=== PATIENT | male | born 1985 | race Caucasian/White ===

== ENCOUNTER 2022-11-15 09:40 | Emergency (ER) | payer OTHER, SELFPAY ==
[2022-11-15 09:41] VITALS: BP 129/91; PULSE 110; RESP 22; TEMP 36.6; O2SAT 97; BMI 26.9
--- NOTE | 2022-11-15 10:06 | CT_ITS ---
STUDY: CT ABDOMEN AND PELVIS WITH CONTRAST REASON FOR EXAM: Male, 36 years old. lower abd pain RADIATION DOSAGE (If Supplied By Facility): CTDIvol = ( 15.86 ) mGy, DLP = ( 1019.32 ) mGycm TECHNIQUE: Transaxial images were obtained from the dome of the diaphragm to the symphysis pubis without oral contrast. IV 100mL Isovue-370 was administered. Sagittal and coronal images were reconstructed. Individualized dose optimization techniques were used for this CT. COMPARISON: None. FINDINGS: The visualized lung bases are unremarkable. The visualized portions of the heart are within normal limits. Normal liver. Normal gallbladder and extrahepatic biliary system. Normal spleen. Normal pancreas. Normal bilateral adrenal glands. Normal right kidney. Normal left kidney. There is a small hiatal hernia. Normal small intestine. Normal colon. The appendix is visualized and appears normal. Normal abdominal aorta. Normal inferior vena cava. Normal retroperitoneum. Normal urinary bladder. Normal abdominal wall. Normal osseous structures. CT/Abdomen/Pelvis W IV Cont ONLY IMPRESSION: No acute abnormality. Small hiatal hernia. Electronically Signed: Sunny Jara MD at 12:05 EDT ,
--- NOTE | 2022-11-15 10:07 | ED.VIS.GI ---
HPI HPI - GI History of Present Illness Chief Complaint: Abd Pain Detail of Chief Complaint: Suprapubic abd pain since last night. Informant: patient and spouse/S.O. Abdominal Pain/Flank Pain Onset: Today and Yesterday Context: Gradual Onset Timing: Continuous Current Severity: Moderate Maximum Severity: Moderate Worsened by: Nothing Relieved by: Nothing Nausea/Vomiting/Emesis GI Symptom: Positive for Nausea and Vomiting Onset: Today and Yesterday Severity: Mild Diarrhea/Melena/Hematochezia GI Symptom: Negative for Diarrhea Associated Symptoms Associated Symptoms: Positive for Dysuria Narrative Narrative: 36-year-old male no seen past medical history of then prior back surgery from trauma. States that yesterday started having suprapubic abdominal pain with nausea vomiting. No diarrhea no constipation. Mild dysuria. No prior history. No prior abdominal surgery. No fever. No trauma. Prior similar symptoms: No Recent Illness/Hospitalization: No PFSH PFSH Medical History (Updated 11/15/22 @ 15:[address] James Sharpe MD) Hx of opioid abuse Hx of opioid abuse Medical History no medical history no medical history Home Medications NK 11/15/22 [History Last Taken Unknown] Allergy/AdvReac Type Severity Reaction Status Date / Time No Known Allergies Allergy Verified 11/15/22 09:41 Family History no significant family his Surgical History (Updated 11/15/22 @ 10:34 by Nadege Peñaloza) Previous back surgery Surgical History no surgical history Social History Smoking Status: Never smoker ROS ROS ED ROS Narrative Suprapubic abdominal pain. Nausea vomiting. Review of Systems ROS Unobtainable: Denies due to encephalopathy Constitutional Constitutional ED: Reports chills; Denies fever(s) ENT ENT ED: Denies ear pain Cardiovascular Cardiovascular: Denies chest pain Respiratory/Chest Respiratory/Chest: Denies cough or dyspnea Gastrointestinal Gastrointestinal: Reports abdominal pain, nausea and vomiting; Denies constipation, diarrhea or melena Genitourinary Genitourinary ED: Reports dysuria Musculoskeletal Musculoskeletal: Denies arthralgias Integumentary Denies abscess Neurologic Neurologic: Denies headache(s) Psychiatric Psychiatric: Denies anxiety Endocrine Endocrinology: Denies polydipsia or polyphagia Hematologic/Lymphatic Hematologic/Lymphatic: Denies easy bleeding Allergic/Immunologic Allergic/Immunologic ED: Denies mouth swelling EXAM Physical Exam Narrative Exam Narrative: 36-year-old male vital signs are stable afebrile. He does not look septic or toxic. He is in no distress but he does seem to be in a moderate amount of pain. HEENT exam unremarkable. Lungs are clear. Heart regular rhythm. Abdomen soft, nondistended, normal bowel sounds without peritoneal signs. Both the right upper and right lower quadrants are unremarkable. No distention. His only tenderness is suprapubic below his bellybutton above his lower pelvis. No signs of trauma. Moving all 4 extremities. Back nontender. Neurologically is awake and alert. Const Vital Signs: 11/15/22 09:41 11/15/22 13:00 11/15/22 15:00 Temperature 97.9 F Temperature Source Temporal Pulse Rate 110 H 68 82 Respiratory Rate 22 H 20 H 37 H Blood Pressure 129/91 H 133/83 H Blood Pressure Mean 103 98 Pulse Ox 97 Oxygen Delivery Method Room Air Room Air Positive well nourished and well developed; Negative for cachectic, contractures or unkempt General Appearance ED: well developed; Negative for unkempt, cachectic, contractures or pallor Nutritional Appearance: Negative for cachectic HEENT Reports moist mucous membranes normocephalic and atraumatic; Negative for trauma or tenderness Eyes PERRL and EOMs intact bilaterally General Eye ED: Negative for pale conjunctiva or scleral icterus Neck no lymphadenopathy, supple and no JVD General: Negative for tenderness Carotids: Negative for other Lymph Lymphatic: Negative for other Resp normal respiratory effort and clear to auscultation bilaterally Effort and Inspection: Negative for respiratory distress Auscultation: Negative for rales or rhonchi Cardio regular rate, regular rhythm, S1 normal heart sound and no murmurs GI non-distended and no masses; Negative for non-tender Inspection: Negative for abdominal distention Auscultation: normoactive bowel sounds Palpation: soft and tender; Negative for guarding, rigid, hepatomegaly, splenomegaly, hernia, mass, pulsatile mass or rebound tenderness present Back/Spine no CVA tenderness General Back: Negative for CVA tenderness Cervical Spine: Negative for cervical spine tenderness Thoracic Spine / Upper Back: Negative for thoracic spinal tenderness Lumbar Spine / Lower Back: Negative for lumbar spinal tenderness Coccyx: Negative for other Extremity full ROM General Extremety ED: Negative for edema or tenderness General Extremity: Negative for edema Neuro CN's II-XII intact bilaterally and moves all extremities Sensorium / Orientation: alert, oriented to person, oriented to place and oriented to time; Negative for orientation impaired or confused Motor Exam: strength 5/5 throughout Psych mental status grossly normal and thought process normal Appearance: Negative for unkempt Attitude: No agitated Skin no wounds General Skin Exam: Negative for jaundice or pallor Lesions: no lesions Rashes: no rashes Trauma: Negative for abrasion Nails: Negative for discolored MDM MDM MDM Narrative Medical decision making narrative: 36-year-old male with suprapubic abdominal pain with nausea vomiting since last night. Differential would include urinary tract infection, prostate infection, diverticulitis. Clinically he is not tender to right lower quadrant appendicitis would be in the differential. CAT scan and labs and urinalysis are being obtained. Will be treated with Toradol for his pain. Zofran for nausea. IV fluids. Repeat exam atorvastatin helped his pain so he was then given a dose of morphine. When the labs returned and the CAT scan showed no specific cause I did do an external exam it was unremarkable. Circumcised male. Testicles were nontender. Normal position. No swelling. I also did a rectal exam there is no prostate tenderness nor swelling this did not appear to be a prostatitis. Explained to both he and his significant other we do not have a specific cause for his suprapubic pain. We discharged home with Tylenol Motrin for pain and outpatient follow-up. History & Record Review Discussion w/independent historian: Patient and Family Lab Data Attestation: I reviewed the patient's lab results. Lab results narrative: CBC shows a white count of 13. H&H is 16.5 and 47. Platelets 459. CMP shows a gap of 11. BUN and creatinine are 25 and 1. Liver enzymes are unremarkable. CT abdomen pelvis shows no acute process. Incidental hiatal hernia. But no cause for his pain. Urinalysis is negative. Labs: Laboratory Results - last 24 hr 11/15/22 11/15/22 11/15/22 10:15 10:15 14:15 WBC 13.0 H RBC 5.73 Hgb 16.5 Hct 47.9 MCV 83.6 MCH 28.8 MCHC 34.4 RDW Std Deviation 39.2 RDW Coeff of Garcia 12.8 Plt Count 459 H MPV 9.7 Immature Gran % (Auto) 0.300 Neut % (Auto) 74.9 H Lymph % (Auto) 18.0 L Green % (Auto) 6.5 Eos % (Auto) 0.0 Baso % (Auto) 0.3 Absolute Neuts (auto) 9.8 H Absolute Lymphs (auto) 2.35 Nucleated RBC % 0 Sodium 138 Potassium 3.7 Chloride 107 Carbon Dioxide 20.0 L Anion Gap 11 BUN 25 H Creatinine 1.04 Estim Creat Clear Calc 120.56 Est GFR (MDRD) Af Amer 103 Est GFR (MDRD) Non-Af 85 BUN/Creatinine Ratio 24.0 H Glucose 104 Calcium 9.7 Total Bilirubin 1.50 H AST 28 ALT 40 Alkaline Phosphatase 111 Total Protein 9.0 H Albumin 3.9 Globulin 5.1 H Albumin/Globulin Ratio 0.8 L Urine Color Yellow Urine Clarity Clear Urine pH 7.0 Ur Specific [place] 1.010 Urine Protein 30 H Urine Glucose (UA) Normal Urine Ketones 150 A* Urine Occult Blood 25 H Urine Nitrite Negative Urine Bilirubin 1 H Urine Urobilinogen 4 H Ur Leukocyte Esterase 25 H Urine RBC 0 SEEN Urine WBC 0-5 SEEN Ur Squamous Epith Cells 0-5 SEEN Urine Bacteria 0 SEEN Urine Mucus 0 SEEN Radiography Diagnostic Testing: Clinical Impression(s) from Imaging Studies Abdomen/Pelvis CT 11/15/22 10:06 IMPRESSION: No acute abnormality. Small hiatal hernia. Electronically Signed: Snuny Jara MD at 12:05 EDT , Discharge Plan Triage Chief Complaint: Abd Pain ED Provider: James Sharpe Dx/Rx/DC Orders Clinical Impression: Abdominal pain Instructions: ED Abdominal Pain Unkn Cause Male... Prescriptions: No Action NK Primary Care Provider: Care Physician,No Primary Referrals: Josue Cheema MD [Med Staff - [employer]] - As soon as possible [facility],Out of [Non-Staff] - Activity Restrictions/Additional Instructions: Abdominal pelvic pain of uncertain cause. Urine was not infected. Your prostate is not tender. There is no signs of appendicitis. Your labs are unremarkable. Outpatient follow-up with a local primary care physician. Motrin Tylenol for pain. Return if worsening pain, fever or feeling worse. Disposition Disposition: Home, Self Care
[2022-11-15] MEDS: Ondansetron 4 MG/2 ML Vial IV (10:19)
[2022-11-15] MEDS: Ketorolac 30 MG/ML Syringe IV (10:20)
[2022-11-15 10:22] LABS: Absolute Lymphocyte Count 2.35 X10^3/uL (0.83-4.51); Absolute Neutrophil Count 9.8 X10^3/uL (2.0-7.7); Basophil# 0.04 X10^3/uL; Basophil% 0.3 % (0-1); Hematocrit 47.9 % (40-54); Hemoglobin 16.5 g/dL (13.0-16.5); Lymphocyte # 2.35 X10^3/ul (0.83-4.51); Mean Corp Hgb Conc 34.4 g/dL (32-36); Mean Corpuscular Hgb 28.8 pg (27.0-32.0); Mean Corpuscular Volume 83.6 fL (80-94); Mean Platelet Vol. 9.7 fl (6.2-12.0); Monocyte# 0.84 X10^3/uL; Monocyte% 6.5 % (0-10); NRBC Flagged by Analyzer 0 % (0-5); Neutrophil # 9.75 X10^3/uL (2.7-7.7); Neutrophil % 74.9 % (47-70); Platelet Count 459 K/mm3 (150-450); RBC Distribution Width CV 12.8 % (11.6-14.6); RBC Distribution Width SD 39.2 fl (35.1-43.9); Red Blood Count 5.73 M/mm3 (4.6-6.2)
[2022-11-15] MEDS: 0.9% Normal Saline 1,000 ML 1000 ML IV (10:22)
[2022-11-15 10:35] LABS: ALB/GLOB Ratio 0.8 RATIO (0.9-2.4); AST(SGOT) 28 U/L (15-37); Alanine Aminotransfer ALT/SGPT 40 U/L (16-61); Albumin, Serum 3.9 g/dL (3.2-5.0); Alkaline Phosphatase 111 U/L (45-117); Anion Gap 11 (5-15); BUN 25 mg/dL (7-18); Calcium,Total 9.7 mg/dL (8.5-10.1); Chloride 107 mmol/L (98-107); Creatinine, Serum 1.04 mg/dL (0.70-1.30); EST Glomerular Filtration Rate 85 mL/min (>60); Est Glom Filt Rate - Afr Amer 103 mL/min (>60); Estimated Creatinine Clearance 120.56 ml/min; Globulin 5.1 g/dL (2.2-4.2); Glucose 104 mg/dL (74-106); Potassium 3.7 mmol/L (3.5-5.1); Sodium Level 138 mmol/L (136-145)
[2022-11-15] MEDS: morphine 8 MG/ML Syringe 6 MG IV (10:53)
[2022-11-15] MEDS: 0.9% Normal Saline 1,000 ML 999 ML IV (12:11)
[2022-11-15 13:00] VITALS: PULSE 68; RESP 20
[2022-11-15 14:19] LABS: Bacteria 0 SEEN /hpf (None Seen); Mucous, Urine 0 SEEN /hpf (<or=2+); Red Blood Cells-Urine 0 SEEN /hpf (0-5)
[2022-11-15 14:28] LABS: Color, Urine Yellow (Yellow); Glucose, Dipstick Normal (Normal); Leukocyte Esterase-Dipstick 25 /ul (Negative); Nitrite-Dipstick Negative (Negative); Occult Blood-Urine 25 /ul (Negative); Protein-Dipstick 30 mg/dl (Negative); Urine Bilirubin Dipstick 1 mg/dL (Negative); Urine Clarity Clear (Clear); Urine Urobilinogen 4 mg/dl (Normal)
[2022-11-15 14:30] LABS: Ketone-Dipstick 150 mg/dl (Negative)
[2022-11-15 14:37] LABS: Squamous Epithelial Cells - UA 0-5 SEEN /hpf (0-5); White Blood Cells 0-5 SEEN /hpf (0-5)
[2022-11-15 15:00] VITALS: BP 133/83; PULSE 82; RESP 37
== END 2022-11-15 16:02 | disposition home or self-care (01) ==
PROVIDERS: Emergency Provider Emergency Medicine; Visit Provider Emergency Medicine
DX: R10.9 Unspecified abdominal pain (principal); R11.2 Nausea with vomiting, unspecified
CPT/HCPCS: 74177; 80053; 81001; 85025; 99283; J7030; Q9967; A4216; J2405